=== PATIENT | male | born 1985 | race Caucasian/White ===

== ENCOUNTER 2018-04-14 12:35 | Inpatient (IN) ==
[2018-04-14 13:17] LABS: White Blood Count 5.6 th/mm3 (4.0-11.0)
[2018-04-14 13:18] LABS: Baso % (Auto) 0.3 % (0.0-2.0); Eos % (Auto) 0.6 % (0.0-4.0); Hematocrit 43.3 % (39.0-51.0); Hemoglobin 14.7 gm/dL (13.0-17.0); Lymph # (Auto) 0.9 th/mm3 (1.0-4.8); Lymph % (Auto) 16.7 % (9.0-44.0); Mean Corpuscular Hemoglobin 31.1 pg (27.0-34.0); Mean Corpuscular Volume 91.4 fL (80.0-100.0); Mean Platelet Volume 9.1 fL (7.0-11.0); Mono # (Auto) 0.6 th/mm3 (0.0-0.9); Mono % (Auto) 10.9 % (0.0-8.0); Neut % (Auto) 71.5 % (16.0-70.0); Platelet Count 208 th/mm3 (150-450); Red Blood Count 4.73 mil/mm3 (4.50-5.90); Red Cell Distribution Width 12.8 % (11.6-17.2)
[2018-04-14 13:31] LABS: Albumin 4.5 g/dL (3.4-5.0); Anion Gap 6 meq/L (5-15); Aspartate Aminotransferase 20 U/L (15-37); Blood Urea Nitrogen 10 mg/dL (7-18); Calcium 9.2 mg/dL (8.5-10.1); Chloride 108 meq/L (98-107); Glomerular Filtration Rate Greater Than 89 mL/min (>89); Glucose,Random 90 mg/dL (74-106); Potassium 4.4 meq/L (3.5-5.1); Sodium 142 meq/L (136-145)
[2018-04-14 13:32] LABS: Alanine Aminotransferase 29 U/L (12-78)
[2018-04-14 13:42] LABS: Alkaline Phosphatase 71 U/L (45-117); Total Protein 8.2 g/dL (6.4-8.2)
--- NOTE | 2018-04-14 13:50 | ED ---
HPI General Chief Complaint: Psychiatric Symptoms Stated Complaint: psych eval Time Seen by Provider: 04/14/18 13:24 Source: patient and other (Holder act report) Mode of arrival: ambulatory Limitations: no limitations History of Present Illness HPI Narrative: 32-year-old male presents to the emergency department under Holder act. According to the Holder act report the patient made statements to his girlfriend he wanted to either kill himself or both of them using a vehicle. Patient had stated he was diagnosed with depression and it has worsened recently due to quitting marijuana. He has been Holder acted in the past and is not currently on any medication. On my examination the patient says that he is not suicidal. He was just upset and told his girlfriend what he told her because they were in a fight and he told her she would have to call the police to get him out of the house. Although he does state that if he was Triggered he would be suicidal. Says he has anger problem and is in a bad mood all the time. reports history of suicidal attempts by eating Porfirio trumpets at the age of 20. Denies homicidal ideations. Denies auditory visual hallucinations. Reports smoking marijuana, but quit 2 weeks ago. Denies alcohol use or tobacco use. Reports history of ADD and depression. Does not take any medications. Symptoms aggravated by a fight with his girlfriend. No known relieving factors. Symptoms are moderate to severe in severity. Onset unknown. Duration likely chronic. No treatments tried. No known allergies. Denies significant past medical history. No primary care provider. Does not see a psychiatrist. Has no other medical complaints. No other modifying factors or associated signs and symptoms. Related Data Home Medications Medication Instructions Recorded Confirmed No Known Home Medications 04/14/18 04/14/18 Previous Rx's Medication Instructions Recorded carbamazepine 100 mg PO BID 15 Days #30 tab 04/17/18 clotrimazole 1 applicatio TOPICAL BID #1 tube 04/17/18 Allergies Allergy/AdvReac Type Severity Reaction Status Date / Time No Known Allergies Allergy Verified 04/14/18 12:47 Review of Systems ROS: all other systems reviewed are negative [facility] Medical History Medical History Patient denies medical problems (Acute) Family History Family History Other Osteoarthritis Social History Social History Substance History: Active Abuse Second Hand Smoke Exposure: No Smoking Status: Never smoker How Often Do You Have a Drink Containing Alcohol: Never Recent Travel in [place] within the Last 8 Weeks: No Recent Out of Country Travel within the Last 8 Weeks: No Substance Abuse Detail Marijuana: Substance Use Status: Early Remission Route Used Substance Abuse: Inhalation Last Used: 04/02/18 Immunization History Tetanus Immunization: Unsure Exam Narrative Exam Narrative: GENERAL: Well-nourished, well-developed male patient, in no acute distress SKIN: Warm and dry. HEAD: Atraumatic. Normocephalic. EYES: Pupils equal and round. ENT: Mucosa pink and moist. NECK: Supple. Trachea midline. CARDIOVASCULAR: Regular rate and rhythm. No murmur appreciated. RESPIRATORY: No accessory muscle use. Clear to auscultation. Breath sounds equal bilaterally. GASTROINTESTINAL: Abdomen soft, non-tender, nondistended. Hepatic and splenic margins not palpable. Bowel sounds are active 4 quadrants. MUSCULOSKELETAL: No obvious deformities. No clubbing. No cyanosis. No edema. BACK: No CVA tenderness. NEUROLOGICAL: Awake and alert. Oriented 3. No obvious cranial nerve deficits. Motor grossly within normal limits. Normal speech. Moves all extremities. 5/5 strength to all extremities. PSYCHIATRIC: No delusional thought processes. No hallucinations. Course Initial Documented Vital Signs Temperature 99.3 F 04/14/18 12:53 Pulse Rate 83 04/14/18 12:53 Respiratory Rate 16 04/14/18 12:53 Blood Pressure 127/77 04/14/18 12:53 Pulse Oximetry 99 04/14/18 12:53 Last Documented Vital Signs Temperature 97.4 F L 04/17/18 04:57 Pulse Rate 69 04/17/18 04:57 Respiratory Rate 16 04/17/18 04:57 Blood Pressure 109/67 04/17/18 04:57 Pulse Oximetry 97 04/17/18 04:57 Medical Decision Making MDM Narrative Medical decision making narrative: Patient presents under a Holder act. Physical examination and vital signs are essentially unremarkable. Patient has no medical complaints to report. Psych screen has been ordered. If the laboratory results are unremarkable, the patient will be medically cleared for psychiatric evaluation and disposition. Medical Screen Exam Complete: Yes Emergency Medical Condition: Yes Differential Diagnosis Differential Diagnosis: Suicidal ideation, homicidal ideation, adjustment disorder, depression, medical clearance for psychiatric evaluation Lab Data Result diagrams: 04/14/18 12:50 04/14/18 12:50 Lab Results 04/14/18 04/14/18 04/14/18 Range/Units 12:50 12:50 12:50 WBC 5.6 (4.0-11.0) th/mm3 RBC 4.73 (4.50-5.90) mil/mm3 Hgb 14.7 (13.0-17.0) gm/dL Hct 43.3 (39.0-51.0) % MCV 91.4 (80.0-100.0) fL MCH 31.1 (27.0-34.0) pg MCHC 34.0 (32.0-36.0) % RDW 12.8 (11.6-17.2) % Plt Count 208 (150-450) th/mm3 MPV 9.1 (7.0-11.0) fL Neut % (Auto) 71.5 H (16.0-70.0) % Lymph % (Auto) 16.7 (9.0-44.0) % Pacific % (Auto) 10.9 H (0.0-8.0) % Eos % (Auto) 0.6 (0.0-4.0) % Baso % (Auto) 0.3 (0.0-2.0) % Neut # (Auto) 4.0 (1.8-7.7) th/mm3 Lymph # (Auto) 0.9 L (1.0-4.8) th/mm3 Pacific # (Auto) 0.6 (0.0-0.9) th/mm3 Eos # (Auto) 0.0 (0.0-0.4) th/mm3 Baso # (Auto) 0.0 (0.0-0.2) th/mm3 WBC Differential . Differential Comment Auto diff final Sodium 142 (136-145) meq/L Potassium 4.4 (3.5-5.1) meq/L Chloride 108 H (98-107) meq/L Carbon Dioxide 28.0 (21.0-32.0) meq/L Anion Gap 6 (5-15) meq/L BUN 10 (7-18) mg/dL Creatinine 0.74 (0.60-1.30) mg/dL Estimated GFR Greater than 89 (>89) mL/min Random Glucose 90 (74-106) mg/dL Calcium 9.2 (8.5-10.1) mg/dL Total Bilirubin 0.3 (0.2-1.0) mg/dL AST 20 (15-37) U/L ALT 29 (12-78) U/L Alkaline Phosphatase 71 (45-117) U/L Total Protein 8.2 (6.4-8.2) g/dL Albumin 4.5 (3.4-5.0) g/dL TSH 0.490 (0.358-3.740) uIU/mL Salicylates Less than 1.7 L (2.8-20.0) mg/dL Urine Opiates Screen (Neg) Acetaminophen Less than 2.0 L (10.0-30.0) mcg/mL Ur Barbiturates Screen (Neg) Ur Amphetamines Screen (Neg) U Benzodiazepines Scrn (Neg) Urine Cocaine Screen (Neg) U Cannabinoids Screen (Neg) Serum Alcohol Less than 3 (0-5) mg/dL 04/14/18 Range/Units 14:46 WBC (4.0-11.0) th/mm3 RBC (4.50-5.90) mil/mm3 Hgb (13.0-17.0) gm/dL Hct (39.0-51.0) % MCV (80.0-100.0) fL MCH (27.0-34.0) pg MCHC (32.0-36.0) % RDW (11.6-17.2) % Plt Count (150-450) th/mm3 MPV (7.0-11.0) fL Neut % (Auto) (16.0-70.0) % Lymph % (Auto) (9.0-44.0) % Pacific % (Auto) (0.0-8.0) % Eos % (Auto) (0.0-4.0) % Baso % (Auto) (0.0-2.0) % Neut # (Auto) (1.8-7.7) th/mm3 Lymph # (Auto) (1.0-4.8) th/mm3 Pacific # (Auto) (0.0-0.9) th/mm3 Eos # (Auto) (0.0-0.4) th/mm3 Baso # (Auto) (0.0-0.2) th/mm3 WBC Differential Differential Comment Sodium (136-145) meq/L Potassium (3.5-5.1) meq/L Chloride (98-107) meq/L Carbon Dioxide (21.0-32.0) meq/L Anion Gap (5-15) meq/L BUN (7-18) mg/dL Creatinine (0.60-1.30) mg/dL Estimated GFR (>89) mL/min Random Glucose (74-106) mg/dL Calcium (8.5-10.1) mg/dL Total Bilirubin (0.2-1.0) mg/dL AST (15-37) U/L ALT (12-78) U/L Alkaline Phosphatase (45-117) U/L Total Protein (6.4-8.2) g/dL Albumin (3.4-5.0) g/dL TSH (0.358-3.740) uIU/mL Salicylates (2.8-20.0) mg/dL Urine Opiates Screen Neg (Neg) Acetaminophen (10.0-30.0) mcg/mL Ur Barbiturates Screen Neg (Neg) Ur Amphetamines Screen Neg (Neg) U Benzodiazepines Scrn Neg (Neg) Urine Cocaine Screen Neg (Neg) U Cannabinoids Screen Pos H (Neg) Serum Alcohol (0-5) mg/dL Discharge Plan Discharge Disposition Patient Disposition: 32 Still Patient Discharge Condition Condition: Stable Discharge Order Discharge Orders: Discharge Order (Routine); Ordered 04/17/18 Ordered By: Quang Huertas Discharge Details Anticipated Discharge Date: 04/17/18 Physicians Team ED Provider: Yo Tejeda ED Midlevel Provider: Chely Wall Primary Care Provider: Primary Care Floridalma Morales Attending Provider: Quang Huertas Other Providers: Denys Cuellar ; Utilizer, High Service Status ED Status: Left Department Discharge Information Discharge Date/Time: 04/15/18 10:49
[2018-04-14 15:27] LABS: Amphetamine Screen,Urine Neg (Neg); Barbiturate Screen,Urine Neg (Neg); Cannabinoid Screen,Urine Pos (Neg); Cocaine Screen,Urine Neg (Neg)
[2018-04-14 15:36] LABS: Opiate Screen,Urine Neg (Neg)
[2018-04-15] MEDS ORDERED: Aluminum/Magnesium/Simethacone Susp 30 ML UDC PO PRN (09:43)
[2018-04-15] MEDS ORDERED: Acetaminophen 325 MG Tablet PO PRN (09:43)
--- NOTE | 2018-04-15 09:50 | P.HPPSY ---
Provisional Diagnosis Admission Date: April 14, 2018 12:35 Wayne I.: Adjustment disorder with mixed disturbances of emotion and conduct, intermittent explosive disorder and adult Competence Certification of Person's Competence To Provide Express and Informed Consent I have personally examined Raji Akers, a person being served at [facility] on, April 15, 2018 0948. Express and informed consent means consent voluntarily given in writing, by a competent person, after sufficient explanation and disclosure of the subject matter involved to enable the person to make a knowing and willful decision without any element of force, fraud, deceit, duress, or other form of constraint or coercion. This person is 18 years of age or older, is not now known to be incompetent to consent to treatment with a guardian advocate, and does not have a health care surrogate or proxy currently making medical treatment decisions. I have found this person to be one of the following: [xxx] Competent to provide express and informed consent, as defined above, for voluntary admission to this facility and is competent to provide express and informed consent for treatment. He/she has the consistent capacity to make well reasoned, willful, and knowing decisions concerning his or her medical or mental health treatment. The person fully and consistently understands the purpose of the admission for examination/placement and is fully capable of personally exercising all rights [place] Incompetent to provide express and informed consent to voluntary admission, and this is incompetent to provide express and informed consent to treatment. The person must be transferred to involuntary status and a petition for a guardian advocate filed with the Circuit Court. [] Refusing to provide express and informed consent to voluntary admission but is competent to provide express and informed consent for treatment. The person must be discharged or transferred to involuntary status. Form shall be completed within 24 hours of a person's arrival at the receiving facility and filed in the clinical record of each person: 1. Admitted on a voluntary basis 2. Permitted to provide express and informed consent to his/her own treatment 3. Allowed to transfer from involuntary to voluntary status 4. Prior to permitting a person to consent to his or her own treatment after having been previously found incompetent to consent to treatment. History of Present Illness Capacity: Has capacity History of Present Illness: Patient is a 32-year-old white male initially comes here under Holder act by the [employer] dated 04/14/2018 at 11:57 AM that document reviewed essentially stating made statements to his girlfriend he wanted to either kill himself or both of them using a vehicle subject stated he was diagnosed with depression and it has worsened recently due to quitting marijuana he has been Holder acted in the past and is not currently on any medication. Patient is seen and screened in the ED urine toxicology positive for marijuana. Review of EMR shows patient has had a psychiatric screen here in 2005. He states at that time he may have been diagnosed bipolar ADHD was briefly on Prozac Ritalin and Depakote though he stopped that more than 10 years ago. At the present time patient sitting quietly in his room and J pod nurse Ashley present throughout session. Patient states she has been living with his girlfriend for over a year. At times they do have arguments. Patient states he was a regular marijuana user though he has decreased the frequency and amount of use is quite a bit. He is noticing increased paranoia irritability and anger and temper. This is gotten to the point where his girlfriend has broken off the relationship though he is having a difficult time acknowledging it. She did tell him to leave their apartment. He was afraid to because of the marijuana use thus the girlfriend called the police and he was Holder acted. At this time patient sitting quietly in his room nurse Ashley present throughout session he is somewhat contrite he does identify the mood and behavior changes though he does acknowledge he has had an almost lifelong history of impulse control issues and anger issues she does acknowledge she is somewhat volcanic with his temper he does say he has a very short fuse and he uses an example of him having a very low ceiling for control of his temper and wants a whole appears and it he states he almost voluntarily goes through that into his rage. He states in the past he has damaged property but none recently. He denies voices or visions with this denies suicidality homicidality with this. He denies any physical or sexual abuse. Denies any significant mental illness in the family though the may be a grandmother who has mental health issues. He states he has had an issue in the past with being arrested for marijuana possession. He does acknowledge a significant marijuana use and now it is somewhat intermittent though he is using the marijuana oil that he says is quite powerful. Denies alcohol use. But has experimented with multiple other drugs including mushrooms cocaine mollies and acid. He denies any significant medical or surgical problems. He says he graduated high school. He just lost his job because of his temper. That he would like to go back to school to get a degree in computer engineering. We did discuss his need to acknowledge the severity of his explosive temper and get treatment for that there is also a component of obsessiveness with him related to his girlfriend. She has called us with that she has some fear for her safety. The patient has shown some mild obsessing and perseverating about wanting to talk to her. We have counseled him that he needs to refrain from contact at this time. Also at the stomach feel patient would benefit from a brief inpatient psychiatric hospitalization to start treatment for his explosiveness. I feel he would benefit from mood stabilizers such as Tegretol. I also feel the patient does have capacity. Thus I offer the patient voluntary admission to start him on Tegretol and to allow him time to talk with his family about placement and to process some of these issues he is willing to do that thus he will be admitted on a voluntary basis started on Tegretol 100 mg twice daily refrain from any benzodiazepines or opiates Review of Systems All other systems reviewed negative except as stated in HPI PMFSH - History History Provided By: Patient - Medical / Surgical Hx Neg / Unobtainable Medical Problems Denied: Yes Surgical History: No Previous Surgery - Medical History Medical History: Medical History (Last Reviewed 04/15/18 @ 09:58 by Britton Bray MD) Patient denies medical problems - Surgical History Surgical History: Surgical History (Last Reviewed 04/15/18 @ 09:58 by Britton Bray MD) No history of previous surgery - Social History I have reviewed the patient's Social History: Yes - Tobacco History Second Hand Smoke Exposure: No Smoking Status: Never smoker - Alcohol History How Often Do You Have a Drink Containing Alcohol: Never - Substance Use History Substance History: Past History - Substance Use Type Marijuana Status: Early Remission Route Used: By Mouth Frequency: "dab" oil...recently quit. Last Used: 04/02/18 Comment: Quit almost 2 weeks ago. - Travel History Recent Travel in the [place] Within the Last 8 Weeks: No Recent Travel Out of the Country Within the Last 8 Weeks: No - Immunization History Tetanus Immunization: Unsure Quality Measures - Psychiatric History Psychological trauma history: Patient denies Violence risk to others in the last 6 months: Patient has explosive temper there is risk of property damage perhaps greater than any risk of personal damage Violence risk to self in the last 6 months: Low to moderate - Substance Abuse History Drug or alcohol use in the past 12 months: Patient regular marijuana user - Patient Strengths Patient's strengths (minimum of 2): Patient verbal able access healthcare his insight into his issues and desire to get better Medications and Allergies Allergies Allergy/AdvReac Type Severity Reaction Status Date / Time No Known Allergies Allergy Verified 04/14/18 12:47 Home Medications Medication Instructions Recorded Confirmed Type No Known Home Medications 04/14/18 04/14/18 History Results - Labs CBC & Chem 7: 04/14/18 12:50 04/14/18 12:50 Labs: Laboratory Results - last 24 hr 04/14/18 04/14/18 04/14/18 12:50 12:50 12:50 WBC 5.6 RBC 4.73 Hgb 14.7 Hct 43.3 MCV 91.4 MCH 31.1 MCHC 34.0 RDW 12.8 Plt Count 208 MPV 9.1 Neut % (Auto) 71.5 H Lymph % (Auto) 16.7 Greene % (Auto) 10.9 H Eos % (Auto) 0.6 Baso % (Auto) 0.3 Neut # (Auto) 4.0 Lymph # (Auto) 0.9 L Greene # (Auto) 0.6 Eos # (Auto) 0.0 Baso # (Auto) 0.0 WBC Differential . Differential Comment Auto diff final Sodium 142 Potassium 4.4 Chloride 108 H Carbon Dioxide 28.0 Anion Gap 6 BUN 10 Creatinine 0.74 Estimated GFR Greater than 89 Random Glucose 90 Calcium 9.2 Total Bilirubin 0.3 AST 20 ALT 29 Alkaline Phosphatase 71 Total Protein 8.2 Albumin 4.5 TSH 0.490 Salicylates Less than 1.7 L Urine Opiates Screen Acetaminophen Less than 2.0 L Ur Barbiturates Screen Ur Amphetamines Screen U Benzodiazepines Scrn Urine Cocaine Screen U Cannabinoids Screen Serum Alcohol Less than 3 04/14/18 14:46 WBC RBC Hgb Hct MCV MCH MCHC RDW Plt Count MPV Neut % (Auto) Lymph % (Auto) Greene % (Auto) Eos % (Auto) Baso % (Auto) Neut # (Auto) Lymph # (Auto) Greene # (Auto) Eos # (Auto) Baso # (Auto) WBC Differential Differential Comment Sodium Potassium Chloride Carbon Dioxide Anion Gap BUN Creatinine Estimated GFR Random Glucose Calcium Total Bilirubin AST ALT Alkaline Phosphatase Total Protein Albumin TSH Salicylates Urine Opiates Screen Neg Acetaminophen Ur Barbiturates Screen Neg Ur Amphetamines Screen Neg U Benzodiazepines Scrn Neg Urine Cocaine Screen Neg U Cannabinoids Screen Pos H Serum Alcohol Exam Vital signs: Vital Signs 04/14/18 12:53 04/14/18 23:51 04/15/18 05:25 Temperature 99.3 F 98.1 F 97.6 F Pulse Rate 83 88 84 Respiratory Rate 16 18 14 Blood Pressure 127/77 140/81 121/72 Pulse Oximetry 99 99 100 Intake & Output 04/14/18 04/15/18 04/15/18 18:59 06:59 18:59 Output Total 180 / 180 Balance -180 / -180 Weight 81.647 kg Output: Urine 180 / 180 Other: # Voids 1 Narrative: Patient seen in his room he is in no acute distress, patient no respiratory distress, no complaints of chest pain or abdominal pain, patient moving all 4 extremities without difficulty Mental Status Examination Appearance: Appropriate Consciousness: Alert Orientation: x4 Motor Activity: Normal gait Speech: Unremarkable Language: Adequate Fund of Knowledge: Adequate Attention and Concentration: Adequate Memory: Unremarkable Mood: Other (Euthymic to mildly dysphoric) Affect: Other (Good range and intensity) Thought Process & Associations: Intact Thought Content: Appropriate, Obsessions (Some obsessing about relationship with his girlfriend) Hallucination Type: None Delusion Type: None Suicidal Ideation: No Suicidal Plan: No Suicidal Intention: No Homicidal Ideation: No Homicidal Plan: No Homicidal Intention: No Insight: Fair Judgment: Impulsive Assessment and Plan - Assessment (1) Adjustment disorder with mixed disturbance of emotions and conduct Code(s): F43.25 - Adjustment disorder with mixed disturbance of emotions and conduct Status: Acute (2) Intermittent explosive disorder in adult Code(s): F63.81 - Intermittent explosive disorder Status: Acute - Plan Plan: Estimated LOS: [] days Patient meets criteria for inpatient psychiatric stabilization though I feel his capacity thus I will allow him to sign voluntary. We will start him on Tegretol 100 mg twice daily check a blood level in about 3 days. We will offer him Atarax and Benadryl. Hopeless be a short stay we can work with him with placement perhaps staying with his family at the present time and refraining from any untoward unwanted communication with his girlfriend Justification for Continued Inpatient Stay: At this time patient would decompensate a place to a lower level of care Discharge Planning: To be determined probable going home with parents Request Healthcare Surrogate/Guardian Advocate?: No
[2018-04-15] MEDS: carBAMazepine 100 MG Chewable Tablets PO SCH ×2 (11:31→21:59)
[2018-04-16] MEDS: carBAMazepine 100 MG Chewable Tablets PO SCH ×2 (08:39→21:38)
--- NOTE | 2018-04-16 13:33 | P.PNPSY ---
Subjective Remarks: Reviewed electronic medical records and discussed case with staff. Follow-up was conducted in the dayroom. Patient told the nurse earlier today that he is experiencing intermittent chest pain. He has a court hearing for custody of his son scheduled for Tuesday. Will order an EKG. Complaining of irritation and open areas in his groin from scratching. Will place an hospitalist order to rule out tinea cruris. Patient endorse periods of anxiety, but suspect they are related to his court hearing on Tuesday. Review of Systems All other systems reviewed negative except as stated in HPI Mental Status Examination Appearance: Appropriate Consciousness: Alert Orientation: x4 Motor Activity: Normal gait Speech: Unremarkable Language: Adequate Fund of Knowledge: Adequate Attention and Concentration: Adequate Memory: Unremarkable Mood: Other (Euthymic to mildly dysphoric) Affect: Other (Good range and intensity) Thought Process & Associations: Intact Thought Content: Appropriate, Obsessions (Some obsessing about relationship with his girlfriend) Hallucination Type: None Delusion Type: None Suicidal Ideation: No Suicidal Plan: No Suicidal Intention: No Homicidal Ideation: No Homicidal Plan: No Homicidal Intention: No Insight: Fair Judgment: Impulsive Assessment and Plan - Assessment (1) Adjustment disorder with mixed disturbance of emotions and conduct Code(s): F43.25 - Adjustment disorder with mixed disturbance of emotions and conduct Status: Acute - Plan Plan: Estimated LOS: [] days Continue current treatment plan . Will be seen by psychiatrist on Tuesday. Justification for Continued Inpatient Stay: Moving patient to a less restrictive environment may result in his decompensation. Request Healthcare Surrogate/Guardian Advocate?: No
[2018-04-16 19:18] VITALS: O2SAT 97
[2018-04-17 04:57] VITALS: BP 109/67; PULSE 69; RESP 16; TEMP 97.4
[2018-04-17] MEDS: carBAMazepine 100 MG Chewable Tablets PO SCH (08:23)
[2018-04-17] MEDS ORDERED: Clotrimazole 1% Cream 15 GM Tube TOPICAL SCH (11:00)
--- NOTE | 2018-04-17 12:37 | P.CONIM ---
History of Present Illness Primary Care Provider: No Primary Care Physician History of Present Illness: Mr. Bowman is a 32-year-old male admitted for psychiatric psychosis reasons. He had a complaint of groin itching and irritation. Most likely etiology is tinea cruris. No other complaints today. Review of Systems Constitutional: No fevers, no chills no night sweats, no fatigue, no weakness Eyes: No eye pain, no blurry vision, no loss of vision ENT: No sore throat, no ear pain, no rhinorrhea Cardiovascular: No chest pain, no tachycardia, no palpitations, no shortness of breath, no syncope Respiratory: No wheezing, no cough, no shortness of breath Gastrointestinal: No abdominal pain, no black tarry stools, no bright red blood per rectum, no vomiting, no diarrhea Musculoskeletal: No joint pain, no muscle cramps, no stiffness Integumentary: Itching and irritation at groin, no ulcers, no drainage Neurologic: No sensory loss, no loss of motor function, no dizziness Psychiatric: No behavioral changes, no hallucinations, no suicidal ideations PMFSH - History History Provided By: Patient - Medical / Surgical Hx Neg / Unobtainable Medical Problems Denied: Yes - Medical History Medical History: Medical History (Last Reviewed 04/15/18 @ 09:58 by Britton Bray MD) Patient denies medical problems - Surgical History Surgical History: Surgical History (Last Reviewed 04/15/18 @ 09:58 by Britton Bray MD) No history of previous surgery - Family History Family History: Family History (Last Updated 04/17/18 @ 12:34 by Denys Cuellar MD) Other Osteoarthritis - Tobacco History Second Hand Smoke Exposure: No Smoking Status: Never smoker - Alcohol History How Often Do You Have a Drink Containing Alcohol: Never - Substance Use History Substance History: Active Abuse - Substance Use Type Marijuana Status: Early Remission Route Used: By Mouth Frequency: Daily Last Used: 2 weeks ago Reason for Use: Calm Down Comment: Patient reported he used marijuana daily since 10/2017 to relax. He recently ceased using this 2 weeks ago. Esthela reported he used [place] Trumpet flower in the past when he was 19 yro and LSD 10 years ago. - Travel History Recent Travel in the [place] Within the Last 8 Weeks: No Recent Travel Out of the Country Within the Last 8 Weeks: No - Immunization History Tetanus Immunization: Unsure Hx Influenza Vaccine This Season: No Medications and Allergies Active Medications: Active Medications Acetaminophen (Tylenol) 650 mg PO Q4H PRN PRN Reason: Pain 1-5 or Temp >101F Al Hydrox/Mg Hydrox/Simethicone (Mag-Al Plus Susp Liq) 30 ml PO Q6H PRN PRN Reason: DYSPEPSIA Al Hydroxide/Mg Hydroxide (Milk Of Magnesia Liq) 30 ml PO Q12H PRN PRN Reason: Mild Constipation Carbamazepine (Tegretol Chewable) 100 mg PO BID [facility] Last Admin: 04/17/18 08:23 Dose: 100 mg Clotrimazole (Lotrimin 1% Cream) 1 applicatio TOPICAL BID [facility] Stop: 04/30/18 23:59 Last Admin: 04/17/18 11:29 Dose: Not Given Diphenhydramine HCl (Benadryl) 50 mg PO HS PRN PRN Reason: INSOMNIA Hydroxyzine HCl (Atarax) 50 mg PO Q6H PRN PRN Reason: ANXIETY Allergies Allergy/AdvReac Type Severity Reaction Status Date / Time No Known Allergies Allergy Verified 04/14/18 12:47 Home Medications Medication Instructions Recorded Confirmed Type No Known Home Medications 04/14/18 04/14/18 History Exam Vital signs: Vital Signs 04/16/18 17:33 04/17/18 04:57 Temperature 97.9 F 97.4 F L Pulse Rate 77 69 Respiratory Rate 17 16 Blood Pressure 122/74 109/67 Pulse Oximetry 97 97 Intake & Output 04/16/18 04/17/18 04/17/18 18:59 06:59 18:59 Weight 82.9 kg Narrative: GENERAL: NAD, A&Ox2 HEAD: Normocephalic. NECK: Supple, trachea midline. No lymphadenopathy. EYES: No scleral icterus. No injection or drainage. CARDIOVASCULAR: Regular rate and rhythm without murmurs, gallops, or rubs. RESPIRATORY: Breath sounds equal bilaterally. No accessory muscle use. GASTROINTESTINAL: Abdomen soft, non-tender, nondistended. MUSCULOSKELETAL: No cyanosis, or edema. SKIN: Warm and dry. Irritation at groin. NEURO: No focal neurological deficits. Results - Labs CBC & Chem 7: 04/14/18 12:50 04/14/18 12:50 Assessment and Plan - Assessment (1) Tinea cruris Code(s): B35.6 - Tinea cruris Status: Acute (2) Adjustment disorder with mixed disturbance of emotions and conduct Code(s): F43.25 - Adjustment disorder with mixed disturbance of emotions and conduct Status: Acute (3) Intermittent explosive disorder in adult Code(s): F63.81 - Intermittent explosive disorder Status: Acute - Plan 32-year-old male admitted with psychosis to psychiatry unit, consult placed for tinea cruris Psychosis Continue management per psychiatry Tinea cruris Start Lotrimin topically twice daily, continue for at least 2 weeks DVT prophylaxis Patient ambulatory
--- NOTE | 2018-04-17 13:35 | P.DSPSY ---
Psychiatry Discharge Summary Inpatient Psychiatric care?: Yes Advance Directives: No Mental Health Advance Directive: No Health Care Proxy: No - Admission Admission Date: April 15, 2018 10:10 - Admission Diagnosis (1) Adjustment disorder with mixed disturbance of emotions and conduct Code(s): F43.25 - Adjustment disorder with mixed disturbance of emotions and conduct (2) Intermittent explosive disorder in adult Code(s): F63.81 - Intermittent explosive disorder Brief History: Patient is a 32-year-old white male initially comes here under [place] act by the [employer] dated 04/14/2018 at 11:57 AM that document reviewed essentially stating made statements to his girlfriend he wanted to either kill himself or both of them using a vehicle subject stated he was diagnosed with depression and it has worsened recently due to quitting marijuana he has been Holder acted in the past and is not currently on any medication. Patient is seen and screened in the ED urine toxicology positive for marijuana. Review of EMR shows patient has had a psychiatric screen here in 2005. He states at that time he may have been diagnosed bipolar ADHD was briefly on Prozac Ritalin and Depakote though he stopped that more than 10 years ago. At the present time patient sitting quietly in his room and J pod nurse Ashley present throughout session. Patient states she has been living with his girlfriend for over a year. At times they do have arguments. Patient states he was a regular marijuana user though he has decreased the frequency and amount of use is quite a bit. He is noticing increased paranoia irritability and anger and temper. This is gotten to the point where his girlfriend has broken off the relationship though he is having a difficult time acknowledging it. She did tell him to leave their apartment. He was afraid to because of the marijuana use thus the girlfriend called the police and he was Holder acted. At this time patient sitting quietly in his room nurse Ashley present throughout session he is somewhat contrite he does identify the mood and behavior changes though he does acknowledge he has had an almost lifelong history of impulse control issues and anger issues she does acknowledge she is somewhat volcanic with his temper he does say he has a very short fuse and he uses an example of him having a very low ceiling for control of his temper and wants a whole appears and it he states he almost voluntarily goes through that into his rage. He states in the past he has damaged property but none recently. He denies voices or visions with this denies suicidality homicidality with this. He denies any physical or sexual abuse. Denies any significant mental illness in the family though the may be a grandmother who has mental health issues. He states he has had an issue in the past with being arrested for marijuana possession. He does acknowledge a significant marijuana use and now it is somewhat intermittent though he is using the marijuana oil that he says is quite powerful. Denies alcohol use. But has experimented with multiple other drugs including mushrooms cocaine mollies and acid. He denies any significant medical or surgical problems. He says he graduated high school. He just lost his job because of his temper. That he would like to go back to school to get a degree in computer engineering. We did discuss his need to acknowledge the severity of his explosive temper and get treatment for that there is also a component of obsessiveness with him related to his girlfriend. She has called us with that she has some fear for her safety. The patient has shown some mild obsessing and perseverating about wanting to talk to her. We have counseled him that he needs to refrain from contact at this time. Also at the stomach feel patient would benefit from a brief inpatient psychiatric hospitalization to start treatment for his explosiveness. I feel he would benefit from mood stabilizers such as Tegretol. I also feel the patient does have capacity. Thus I offer the patient voluntary admission to start him on Tegretol and to allow him time to talk with his family about placement and to process some of these issues he is willing to do that thus he will be admitted on a voluntary basis started on Tegretol 100 mg twice daily refrain from any benzodiazepines or opiates Tobacco Use In Past 30 Days: No How Often Do You Have a Drink Containing Alcohol: Never Hospital Course: Patient was admitted to a locked, inpatient psychiatric unit. A general medical consultation was obtained. Appropriate precautions were in place throughout patient's hospital stay. Patient was seen and examined on the unit by psychiatry and also visited by counselor. Psychotropic medications were adjusted, and patient tolerated medication changes well without side effects. Patient had improvement in presenting psychiatric symptomatology during the course of his hospital stay. There was no evidence of any suicidality or homicidality on the unit. There was no evidence of self-care deficit. On the day of discharge: Patient seen and examined. Chart reviewed. Case discussed with nursing staff. No behavioral issues noted overnight. Case discussed with counselor who has reached out to patient's girlfriend Lorna (I myself tried to call Lorna with patient's permission but could not reach her), and Lorna is reportedly comfortable with the patient returning home and has been instructed by the counselor to secure the home environment of potential means of harm to self/others out of an abundance of caution. On my examination today , the patient tells me that he believes that it was heavy cannabis use and subsequent "withdrawal" after a concerted effort at cessation that led patient to feel "very angry" and to lash out at others with minimal provocation. He reports that it was an argument with his girlfriend over their pet cats that led him to issue a suicidal threat, although he denies that there was ever any genuine suicidal intent in the threat. The patient notes that the carbamazepine is helping him to feel calmer and he is tolerating it well, unlike previous psychotropic medications on which he has been placed. He denies any suicidal or homicidal ideation, intent or plan. His mood is described as good, and I can elicit no depressive or hypomanic/manic symptoms. He is future oriented with plans to attend college and pursue a degree in computer engineering. He denies any audiovisual hallucinations. I can elicit no delusional material. He reports a history of 1 previous suicide attempt at age 20 when he ate juan trumpets. He denies family history of suicide. He denies any access to guns or firearms. He denies any side effects from medications. He has no physical complaints. Suicide and violence risk assessment on day of discharge both suggest lower imminent risk from mental illness, and the patient's level of function is adequate for outpatient care. Patient has maximized benefit from this inpatient psychiatric hospital stay and will be discharged home today with psychiatric follow-up as arranged by counselor. Patient is also to follow up with primary care. I have counseled the patient regarding the need to obtain a carbamazepine level on an outpatient basis. I have counseled the patient to abstain from any substances of abuse. I have counseled the patient regarding warning signs for need to return to the psychiatric emergency room as part of a general safety plan. - Discharge Discharge Date: 04/17/18 - Discharge Diagnosis (1) Adjustment disorder with mixed disturbance of emotions and conduct Diagnosis: Principal Code(s): F43.25 - Adjustment disorder with mixed disturbance of emotions and conduct Status: Resolved (2) Cannabis abuse Diagnosis: Secondary (Counseled to quit) Code(s): F12.10 - Cannabis abuse, uncomplicated Status: Chronic Discharge Disposition: Home - Discharge Instructions Discharge Diet: Regular Diet Activities You Can Perform: Weight Bearing As Tolerat - Discharge Time > 30 minutes Mental Status Examination Appearance: Appropriate Consciousness: Alert Orientation: x4 Motor Activity: Normal gait, Other (No motor abnormalities noted) Speech: Unremarkable Language: Adequate Fund of Knowledge: Adequate Attention and Concentration: Adequate Memory: Unremarkable Mood: Appropriate, Good Affect: Appropriate Thought Process & Associations: Intact, Logical, Goal directed, Linear Thought Content: Appropriate Hallucination Type: None Delusion Type: None Suicidal Ideation: No Suicidal Plan: No Suicidal Intention: No Homicidal Ideation: No Homicidal Plan: No Homicidal Intention: No Mental Status Exam Remarks: Insight and judgment are perhaps fair Discharge/Advance Care Plan - Results Vital Signs: Last Vital Signs Temp 97.4 F L 04/17/18 04:57 Pulse 69 04/17/18 04:57 Resp 16 04/17/18 04:57 BP 109/67 04/17/18 04:57 Pulse Ox 97 04/17/18 04:57 Lab Results: Laboratory Results TSH 0.490 uIU/mL (0.358-3.740) 04/14/18 12:50 Summary of Procedures: None done. Pending Results: None - Medications Number of antipsychotic medications at discharge: 0 - Discharge Care Plan Goals to Promote Your Health: * To prevent worsening of your condition and complications * To maintain your health at the optimal level Directions to Meet Your Goals: Take your medications as prescribed Follow your dietary instruction Follow activity as directed Keep your appointments as scheduled Take your immunizations and boosters as scheduled If your symptoms worsen call your PCP, if no PCP go to Urgent Care Center or Emergency Room For 24/ questions related to your inpatient stay or results of tests pending at discharge, please contact Dr. Quang Huertas MD at Smoking is Dangerous to Your Health. Avoid second hand smoking
--- NOTE | 2018-04-17 13:58 | ECG ---
Date Performed: 04/16/2018 Time Performed: 14:21:53 PTAGE: 32 years EKG: Sinus rhythm EARLY REPOLARIZATION BORDERLINE ECG NO PREVIOUS TRACING DOCTOR: Jaiden Vick Interpretating Date/Time 04/17/2018 13:57:17
== END 2018-04-17 14:35 | disposition home or self-care (01) ==
LOC: NEPD 12:35 → NEDA 04-15 10:10 → H260 04-15 10:48
PROVIDERS: ADMIT Psychiatry & Neurology Psychiatry; ATTEND Psychiatry & Neurology Psychiatry